=== PATIENT | male | born 1960 | race Caucasian/White ===

== ENCOUNTER 2017-12-04 11:04 | Emergency (ER) | payer BC ==
[~2017-12-04] VITALS: Ht 172.7 cm; Wt 99.8 kg
[~2017-12-04 11:04] MED LIST: BENZ100A PO; Norco 5-325 Ta1 EACH PO; PRED20 PO
[2017-12-04 11:40] LABS: BASOPHILS ABSOLUTE AUTO 0.03 K/mm3 (0.00-0.23); BASOPHILS PERCENT AUTO 0 % (0-2); EOSINOPHILS ABSOLUTE AUTO 0.68 K/mm3 (0.00-0.68); EOSINOPHILS PERCENT AUTO 10 % (0-6); Hematocrit 44.9 % (37.0-53.0); Hemoglobin 15.5 g/dL (13.5-17.5); IMMATURE GRAN ABSOLUTE AUTO 0.03 K/mm3 (0.00-0.10); IMMATURE GRAN PERCENT AUTO 0 % (0-1); LYMPHOCYTES ABSOLUTE AUTO 2.14 K/mm3 (0.84-5.20); LYMPHOCYTES PERCENT AUTO 30 % (21-46); MONOCYTES ABSOLUTE AUTO 0.68 K/mm3 (0.16-1.47); MONOCYTES PERCENT AUTO 10 % (4-13); Mean Corpuscular HGB 30.5 pg (26.0-34.0); Mean Corpuscular HGB Conc 34.5 g/dL (31.5-36.5); Mean Corpuscular Volume 88 fL (80-100); Mean Platelet Volume 9.8 fL (9.1-12.4); NEUTROPHILS ABSOLUTE AUTO 3.55 K/mm3 (1.96-9.15); NEUTROPHILS PERCENT AUTO 50 % (41-73); Platelet Count 193 K/mm3 (150-400); RDW Coefficient Variation 12.2 % (11.7-14.2); RDW Standard Deviation 39.8 fL (35.1-46.3); Red Blood Cell Count 5.08 M/mm3 (4.30-5.90); White Blood Cell Count 7.11 K/mm3 (4.00-11.30)
[2017-12-04 12:02] LABS: Alanine Aminotransfer (ALT/SGP 44 U/L (12-78); Albumin, Blood 3.6 g/dL (3.4-5.0); Albumin/Globulin Ratio 0.9 (0.8-1.8); Alk Phos 73 U/L (50-136); Anion Gap 8 mmol/L (6-16); Aspartate Aminotrans (AST/SGOT 30 U/L (12-37); Bilirubin, Total 0.5 mg/dL (0.1-1.0); Blood Urea Nitrogen 18 mg/dL (8-24); Bun/Creatinine Ratio 21.8 (12.0-20.0); CO2, Blood 25 mmol/L (21-32); Calcium, Blood 8.8 mg/dL (8.5-10.1); Chloride, Blood 102 mmol/L (98-108); Creatinine, Blood 0.83 mg/dL (0.60-1.20); Glomerular Filtration Rate >60 (60-); Glucose, Blood 133 mg/dL (70-99); Potassium, Blood 4.1 mmol/L (3.5-5.5); Sodium, Blood 135 mmol/L (136-145); Total Protein, Blood 7.6 g/dL (6.4-8.2)
[2017-12-04 12:11] LABS: Magnesium, Blood 1.9 mg/dL (1.6-2.4); Troponin I <0.015 ng/mL (0.000-0.040)
[2017-12-04] MEDS ORDERED: Ativan1 MG PO (13:25)
[2017-12-04] MEDS ORDERED: LOSA50 PO (13:25)
[2017-12-04] MEDS ORDERED: Motion Sickness25 M1 PO (13:25)
== END 2017-12-04 13:49 | disposition home or self-care (01) ==
LOC: ER 11:04
PROVIDERS: Emergency Medicine
DX: I10 Essential (primary) hypertension (principal); F17.200 Nicotine dependence, unspecified, uncomplicated
CPT/HCPCS: 36415; 70450; 80053; 83690; 83735; 84443; 84484; 85025; 93005; 93010; 96361; 96374; 99284; J2060; J7030

== ENCOUNTER 2018-05-22 13:28 | Emergency (ER) | payer BC ==
[~2018-05-22] VITALS: Ht 170.2 cm; Wt 99.8 kg
[~2018-05-22 13:28] MED LIST changes: +Ativan1 MG PO; +LOSA50 PO; +Motion Sickness25 M1 PO
[2018-05-22] MEDS ORDERED: Norco 7.5-3251 EACH PO (14:35)
== END 2018-05-22 15:04 | disposition home or self-care (01) ==
LOC: ER 13:28
DX: M25.562 Pain in left knee (principal); I10 Essential (primary) hypertension; F17.210 Nicotine dependence, cigarettes, uncomplicated
CPT/HCPCS: 73562-LT; 99283-25

== ENCOUNTER 2025-09-13 13:19 | Inpatient (IN) | payer BC ==
[~2025-09-13] VITALS: Ht 167.6 cm; Wt 86.0 kg
[~2025-09-13 13:19] MED LIST changes: +Norco 7.5-3251 EACH PO
[2025-09-13] MEDS ORDERED: Diazepam 5 MG / ML 2ML SYR IV ONE ×2 (13:35→15:35)
[2025-09-13 14:13] LABS: BASOPHILS ABSOLUTE AUTO 0.04 K/mm3 (0.00-0.23); BASOPHILS PERCENT AUTO 0 % (0-2); EOSINOPHILS ABSOLUTE AUTO 0.01 K/mm3 (0.00-0.68); EOSINOPHILS PERCENT AUTO 0 % (0-6); Hematocrit 44.8 % (37.0-53.0); Hemoglobin 16.0 g/dL (13.5-17.5); IMMATURE GRAN ABSOLUTE AUTO 0.04 K/mm3 (0.00-0.10); IMMATURE GRAN PERCENT AUTO 0 % (0-1); LYMPHOCYTES ABSOLUTE AUTO 0.83 K/mm3 (0.84-5.20); LYMPHOCYTES PERCENT AUTO 9 % (21-46); MONOCYTES ABSOLUTE AUTO 0.93 K/mm3 (0.16-1.47); MONOCYTES PERCENT AUTO 10 % (4-13); Mean Corpuscular HGB Conc 35.7 g/dL (31.5-36.5); Mean Corpuscular Volume 89 fL (80-100); NEUTROPHILS ABSOLUTE AUTO 7.48 K/mm3 (1.96-9.15); NEUTROPHILS PERCENT AUTO 80 % (41-73); NRBC ABSOLUTE 0.00 K/mm3 (0.00-0.02); NRBC Auto 0.0 /100 WBC (0.0-0.2); Platelet Count 186 K/mm3 (150-400); RDW Coefficient Variation 12.2 % (11.7-14.2); RDW Standard Deviation 40.3 fL (35.1-46.3)
[2025-09-13] MEDS ORDERED: NS 1,000 ML IV SCH ×2 (14:15→17:00)
[2025-09-13 14:21] LABS: Alanine Aminotransfer (ALT/SGP 70.0 U/L (12-78); Albumin, Blood 4.0 g/dL (3.4-5.0); Albumin/Globulin Ratio 1.2 (0.8-1.8); Anion Gap 15.0 mmol/L (3-11); Aspartate Aminotrans (AST/SGOT 65.0 U/L (12-37); Bilirubin, Total 1.1 mg/dL (0.1-1.0); Blood Urea Nitrogen 14.0 mg/dL (8-24); CO2, Blood 22.0 mmol/L (21-32); Calcium, Blood 9.0 mg/dL (8.5-10.1); Chloride, Blood 96.0 mmol/L (98-108); Creatinine, Blood 0.6 mg/dL (0.60-1.20); Ethanol (Alcohol), Blood, Med 21.0 mg/dL; Globulin, Blood 3.3 g/dL (2.2-4.0); Glucose, Blood 143.0 mg/dL (70-99); Potassium, Blood 3.5 mmol/L (3.5-5.5); Sodium, Blood 129.0 mmol/L (136-145); Total Protein, Blood 7.3 g/dL (6.4-8.2)
[2025-09-13 14:31] LABS: Magnesium, Blood 1.5 mg/dL (1.6-2.4); Phosphorus, Blood 2.2 mg/dL (2.5-4.9)
[2025-09-13 15:09] LABS: Source, Urine Clean Catch
[2025-09-13 15:13] LABS: Bilirubin, Urine Neg (Neg); Color, Urine Yellow (P-Yellow); Glucose Qualitative, Urine Neg (Neg); Ketones, Urine 3+ (Neg); Leukocyte Esterase, Urine Neg (Neg); Protein, Urine 2+ (Neg); Specific Gravity, Urine 1.005 (1.003-1.022); Urobilinogen, Urine NORM (Normal)
[2025-09-13 15:21] LABS: White Blood Cells, Urine 0-2 /hpf (0-5)
[2025-09-13 15:27] LABS: U Amphetamine Screen Not Detected; U Barbiturate Screen Not Detected; U Benzodiazapine Screen Not Detected; U Buprenorphine Screen Not Detected; U Cannabinoids Screen Not Detected; U Cocaine Screen Not Detected; U Methadone Screen Not Detected; U Methamphetamine Screen Not Detected; U Opiates Screen Not Detected; U Oxycodone Screen Not Detected; U Phencyclidine Screen Not Detected
[2025-09-13] MEDS ORDERED: LORazepam 2 MG/ML 1ML Injection IV ONE (16:15)
[2025-09-13] MEDS ORDERED: FLU VACC TS2025-26(6MOS UP)/PF 45 MCG/0.5 ML SYRINGE IM SCH (16:30)
[2025-09-13] MEDS ORDERED: LORazepam 2 MG/ML 1ML Injection IV PRN ×3 (16:35→16:40)
[2025-09-13] MEDS ORDERED: Magnesium Sulf 2 GM/Water 50ML 50 ML IV STA (16:42)
[2025-09-13 18:34] VITALS: BP 172/135
--- NOTE | 2025-09-13 19:31 | NUR ---
ASSUMPTION OF CARE ASSUMED PT'S CARE AT 1915,PT LYING IN BED WITH EYES CLOSED.PT OPENS EYES TO VERBAL COMMAND.BEDSIDE REPORT COMPLETED,PLAN OF CARE REVIEWED.PT DENIES PAIN,DENIES NEEDS AT THIS TIME.MAINTAINANCE IV FLUIDS AND POTASSIUM INFUSING ORDERED.CALL LIGHT AND PT'S ITEMS WITHIN REACH.BED ALARM IN USE FOR FALL SAFETY PREVENTION.MONITORING ONGOING PER CARE PLAN.
[2025-09-13 19:49] VITALS: BP 165/100
[2025-09-13 23:06] VITALS: BP 143/103
[2025-09-14 03:07] VITALS: BP 134/98
[2025-09-14 03:59] LABS: BASOPHILS ABSOLUTE AUTO 0.03 K/mm3 (0.00-0.23); BASOPHILS PERCENT AUTO 0 % (0-2); EOSINOPHILS ABSOLUTE AUTO 0.29 K/mm3 (0.00-0.68); EOSINOPHILS PERCENT AUTO 4 % (0-6); Hematocrit 45.4 % (37.0-53.0); Hemoglobin 15.5 g/dL (13.5-17.5); IMMATURE GRAN ABSOLUTE AUTO 0.01 K/mm3 (0.00-0.10); IMMATURE GRAN PERCENT AUTO 0 % (0-1); LYMPHOCYTES ABSOLUTE AUTO 1.20 K/mm3 (0.84-5.20); LYMPHOCYTES PERCENT AUTO 17 % (21-46); MONOCYTES ABSOLUTE AUTO 0.69 K/mm3 (0.16-1.47); MONOCYTES PERCENT AUTO 10 % (4-13); Mean Corpuscular HGB Conc 34.1 g/dL (31.5-36.5); Mean Corpuscular Volume 92 fL (80-100); NEUTROPHILS ABSOLUTE AUTO 4.66 K/mm3 (1.96-9.15); NEUTROPHILS PERCENT AUTO 68 % (41-73); NRBC ABSOLUTE 0.00 K/mm3 (0.00-0.02); NRBC Auto 0.0 /100 WBC (0.0-0.2); Platelet Count 158 K/mm3 (150-400); RDW Coefficient Variation 12.5 % (11.7-14.2); RDW Standard Deviation 42.1 fL (35.1-46.3)
[2025-09-14 04:29] LABS: Albumin, Blood 3.3 g/dL (3.4-5.0); Anion Gap 8 mmol/L (3-11); Blood Urea Nitrogen 11 mg/dL (8-24); CO2, Blood 26 mmol/L (21-32); Calcium, Blood 8.3 mg/dL (8.5-10.1); Chloride, Blood 105 mmol/L (98-108); Creatinine, Blood 0.60 mg/dL (0.60-1.20); Glucose, Blood 107 mg/dL (70-99); Magnesium, Blood 2.5 mg/dL (1.6-2.4); Phosphorus, Blood 3.2 mg/dL (2.5-4.9); Potassium, Blood 3.7 mmol/L (3.5-5.5); Sodium, Blood 135 mmol/L (136-145)
--- NOTE | 2025-09-14 06:33 | NUR ---
PT MONITORED DURING THE SHIFT.CIWA AND TREATMENTS COMPLETED PER PROTOCOL.PT SAYS THAT HE WANTS TO GO HOME TODAY.PT EDUCATED ON THE PROCESS OF ALCOHOL WITHDRAWAL AND TREATMENT.PT STILL SCORING HIGH ON CIWA PROTOCOL.PT STATES THAT HE IS DOING OKAY AND WILL NOT DRINK WHEN HE GETS HOME.PT'S CIWA SCORE 0-8 THIS SHIFT.TREMORS NOTED WHILE AWAKE.PT SLEEPING AT THIS TIME,HR 81BPM,BREATHING EVEN AND NONLABORED.OXYGEN SATURATION 95% ON RA.MONITORING ONGOING PER PROTOCOL.
[2025-09-14 07:27] VITALS: BP 139/99
[2025-09-14] MEDS ORDERED: Enoxaparin 40 MG/0.4 ML SYR SC SCH (09:00)
--- NOTE | 2025-09-14 09:42 | NUR ---
AM NOTE: PATIENT ALERT AND ORIENTED. CIWA SCORING 8 THIS MORNING DUE TO TREMORS, ANXIETY AND AGGITATION REGARDING WANTING TO GO HOME. MOVING ALL EXTREMITIES. SITTING UP ON EDGE OF BED IND. BED ALARMS IN PLACE FOR SAFETY. DENIES PAIN. TREMORS NOTED IN BUE. ON ROOM AIR SATING ABOVE 95%. EVEN AND UNLABORED RESPIRATIONS. LUNG SOUNDS CLEAR. NICOTINE PATCH TO RIGHT SHOULDER. DENIES SOB/COUGH. TELE SHOWING SR/ST WITH HR 90-100'S. DENIES CHEST PAIN/PRESSURE/PALPITATIONS. NO EDEMA NOTED. IV FLUIDS INFUSING PER EMAR. BOWEL TONES PRESENT. DENIES ABDOMINAL PAIN/NAUSEA. TOLERATING PO DIET WITHOUT ISSUES. USING URINAL TO VOID. SKIN C/D/I. DR. VACA AND DR. SILVA TO BEDSIDE THIS MORNING. PATIENT WANTING TO GO HOME AND NOT WILLING TO STAY ANOTHER NIGHT. PATIENT EDUCATED ON RISK OF ALCOHOL WITHDRAWL TIMELINE SIGNS AND SYMPTOMS AND DANGERS OF BEING HOME ALONE. PATIENT VERBALIZED ALL EDUCATION BACK TO DOCTORS AND NURSES. PATIENT SITTING ON EDGE OF BED AT THIS TIME DRINKING COFFEE. DENIES NEEDS. CALL LIGHT IN REACH.
[2025-09-14 11:08] VITALS: BP 151/103
[2025-09-14] MEDS ORDERED: GABA300 PO ×3 (11:19→11:21)
[2025-09-14] MEDS ORDERED: Norvasc5 MG PO (11:19)
--- NOTE | 2025-09-14 12:09 | NUR ---
DISCHARGE: NO ACUTE CHANGES. PATIENT DENIES ALCOHOL SYMPTOMS THIS AFTERNOON. UP WITH SBA AND STEADY ON FEET. DAUGHTER IN THIS AFTERNOON. THIS RN AND HARDNESS INSPECTOR REVIEWED DISCHARGE INSTRUCTIONS INCLUDING NEW MEDICATIONS, TO INORGANIC CHEMIST MEDICATIONS FROM [facility] [address], ESTABLISHING PCP AT [facility], FOLLOW UP ON ABDOMINAL AORTA, SMOKING CESSATION, ALCOHOL WITHDRAWL SIGNS AND SYMPTOMS AND WHEN TO RETURN, REMOVAL OF NICOTINE PATCH IF PATIENT IS GOING TO SMOKE AND DISCONTINUING GABAPENTIN IF PATIENT IS GOING TO DRINK. IV'S REMOVED. TELE BOX RETURNED. PATIENT TAKEN TO DAUGHTERS CAR VIA WHEELCHAIR WITH ALL PERSONAL BELONGINGS.
== END 2025-09-14 11:35 | disposition home or self-care (01) | DRG 897 ==
LOC: ER 13:19 → PCU 16:25
PROVIDERS: Physician Assistant; Student in an Organized Health Care Education/Training Program; ADMIT Internal Medicine
PROC: HZ2ZZZZ Detoxification Services for Substance Abuse Treatment (ICD-10-PCS; principal; 2025-09-13)
DX: F10.139 Alcohol abuse with withdrawal, unspecified (principal); E87.1 Hypo-osmolality and hyponatremia; I10 Essential (primary) hypertension; F17.210 Nicotine dependence, cigarettes, uncomplicated; E83.42 Hypomagnesemia; E83.39 Other disorders of phosphorus metabolism; Y90.1 Blood alcohol level of 20-39 mg/100 ml
CPT/HCPCS: 36415; 76705; 80053; 80069; 80320; 81001; 83735; 84100; 85025; 93005; 93010; 94762; 96361; 96374; 96375; 99285-25; A9270; J1650; J2060; J2560; J3360; J3411; J3475; J7030